=== PATIENT | female | born 1985 | race Caucasian/White ===

== ENCOUNTER 2018-05-28 10:26 | Day surgery (SDC) | payer OTHER, SELFPAY ==
[2018-05-21 14:04] VITALS: BMI 25.2
--- NOTE | 2018-05-28 | PATH_ITS ---
[facility] [place] Accession Number: [id number] . 01 Material submitted: . ENDOMETRIAL POLYPS AND CURETTAGE . 01 Clinical history: . RESECTION OF ENDOMETRIAL POLYPS AND CURETTAGE . 02 Diagnosis: Endometrial Biopsy: Multiple fragments of endometrium consistent with benign endometrial polyp, negative for atypia. [facility]05/29/2018 . 02 Electronically signed: . Paul Noonan MD, Pathologist NPI- [id number] . 01 Gross description: . Received one formalin-filled container labeled with the patient's name and labeled resection of endometrial polyps and curettage. The specimen consists of approximately a 0.75 cc aggregate of tissue and mucoid material, which is filtered, wrapped, and entirely submitted in one cassette. ([id number]) /FRR . 02 Pathologist provided ICD-10: N84.0 . 02 CPT . 467159 Performed at: 01 [facility] [address] [id number] MD Mariano Bradford MD Phone: [phone] Performed at: 02 [facility] [address] [place], [place] [id number] MD Anastacio Garber MD Phone: [phone]
[2018-05-28] MEDS: LACTATED RINGERS 1,000 ML 42 ML IV (10:44)
[2018-05-28 11:40] VITALS: BMI 25.2
[2018-05-28] MEDS: MIDAZOLAM 2 MG/2 ML VIAL IV (11:40)
[2018-05-28 11:48] VITALS: BMI 25.2
[2018-05-28 12:19] VITALS: BP 135/89; PULSE 60; RESP 10; TEMP 36.1; O2SAT 96
[2018-05-28 12:24] VITALS: BP 133/87; PULSE 60; RESP 12; O2SAT 96
--- NOTE | 2018-05-28 12:25 | PM.OP.1 ---
Operative Date/Time/Diagnoses Date of procedure: 05/28/18 Time of procedure: 12:25 Pre-op diagnosis: Menorrhagia with ultrasound suggestive of polyp Post-op diagnosis: same Procedure & Clinicians Procedure: Operative hysteroscopy with resection of polyp and D and C Same procedure as scheduled: Yes Indications: Menorrhagia Surgeon: Neelima Vazquez Click Yes if Unassisted: Yes Anesthesia Type: General Operative Notes Findings: Endometrial polyp otherwise normal exam under anesthesia Closure Type: not applicable Specimen(s): other (Endometrial curettings and polyps) Estimated Blood Loss (mL): 5 Blood products transfused: none Procedure in detail: The patient was brought to the operating room where she underwent general anesthesia. She was placed in low stirrups She was prepped and draped in usual sterile fashion with pulsatile stockings in place and functional, warming in place, antibiotics in prior to beginning the case. A single-tooth tenaculum was placed on the anterior lip of the cervix and the uterus dilated to #8 Hegar dilator. The hysteroscope was placed into the uterus with a sorbitol solution running and under constant suction. The resecting loop set at 100 W of cutting was used to resect the polyp down to the level of the endometrium. A endometrial curettage was performed. The polyp and the endometrial curettage was sent to pathology. The patient went to recovery room in good condition counts of instruments and sponges were correct. The sorbitol solution I=O approximately 1000 mL. Complications: none Condition: stable Disposition: same day surgery Plan for aftercare: Follow-up in 2 weeks
[2018-05-28 12:29] VITALS: BP 127/80; PULSE 72; RESP 14; O2SAT 99
[2018-05-28 12:34] VITALS: BP 123/83; PULSE 76; RESP 16; TEMP 36; O2SAT 98
[2018-05-28 13:00] VITALS: BP 121/86; PULSE 72; RESP 16; O2SAT 100
--- NOTE | 2018-05-28 13:16 | PM.PREOP ---
Pre-operative Note Interval Note Pre-op Check: Yes History & Physical Reviewed by Physician and Yes Exam Performed Changes: No
== END 2018-05-28 13:22 | disposition home or self-care (01) ==
PROVIDERS: Family Provider Family Medicine; Visit Provider Specialist
PROC: 0UDB8ZZ Extraction of Endometrium, Via Natural or Artificial Opening Endoscopic (ICD-10-PCS; CPT 58558; principal; 2018-05-28 11:30)
DX: N84.0 Polyp of corpus uteri (principal)
CPT/HCPCS: 58558; J1100; J1885; J2250; J2405; J2704; J3010

== ENCOUNTER → 2020-03-11 09:00 | Outpatient (CLI) | payer OTHER, SELFPAY ==
--- NOTE | 2020-03-11 | DI.CT.S_ITS ---
PROCEDURE: CT ABDOMEN PELVIS W CON INDICATIONS: Right upper quadrant pain TECHNIQUE: After the administration of oral and intravenous contrast, 5 mm thick sections acquired from the diaphragms to the symphysis. 5 mm thick coronal and sagittal reformats were performed. For radiation dose reduction, the following was used: automated exposure control, adjustment of mA and/or kV according to patient size. COMPARISON: None. FINDINGS: Image quality: Excellent. ABDOMEN: Lung bases: Lung bases are clear. Heart size is normal. Solid organs: Liver is normal in size and enhancement. Gallbladder is surgically absent. Biliary system is non-dilated. Pancreas enhances normally. Spleen is normal in size and enhancement. No adrenal nodules. Kidneys are normal in size and enhancement, without hydronephrosis. Peritoneum and bowel: Stomach, small bowel, and colon loops are normal in caliber and wall thickness. No free fluid or air. Nodes and vessels: No retroperitoneal or mesenteric adenopathy. Aorta and inferior vena cava are normal in caliber. Miscellaneous: No ventral hernias. PELVIS: Genitourinary: Bladder wall thickness is normal. Miscellaneous: No inguinal hernias or adenopathy. Bones: No suspicious bony lesions. No vertebral body compression fractures. IMPRESSION: Remote cholecystectomy. Otherwise unremarkable CT of the abdomen and pelvis with contrast. Dictated by: Pasquale Pedro M.D. on 03/11/2020 at 10:17 Approved by: Pasquale Pedro M.D. on 03/11/2020 at 10:20
[2020-03-11 10:32] LABS: Iron 153 ug/dL (37-170)
[2020-03-11 10:33] LABS: BUN Creatinine Ratio 9.8 (6-22); Blood Urea Nitrogen 6 mg/dL (7-17); Calcium 9.7 mg/dL (8.4-10.2); Carbon Dioxide 29 mmol/L (22-32); Chloride 102 mmol/L (98-107); Estimated Glomerular Filt Rate > 60.0 mL/min (>60); Glucose 68 mg/dL (70-100); HEMOLYSIS 29 (0-50); Potassium 4.6 mmol/L (3.4-5.1); Sodium 137 mmol/L (137-145)
[2020-03-11 10:42] LABS: Total Iron Binding Capacity 265 ug/dL (265-497)
[2020-03-11 11:09] LABS: Ferritin 38 ng/mL (6-137)
== END ==
PROVIDERS: Family Provider Family Medicine; PCP Family Medicine; Referring Provider Family Medicine; Visit Provider Family Medicine
DX: Z01.812 Encounter for preprocedural laboratory examination (principal); R10.11 Right upper quadrant pain; R79.89 Other specified abnormal findings of blood chemistry; Z90.49 Acquired absence of other specified parts of digestive tract
CPT/HCPCS: 36415; 74177; 80048; 81256; 82728; 83540; 83550

== ENCOUNTER → 2021-01-01 15:44 | Outpatient (CLI) | payer OTHER, SELFPAY ==
[2021-01-01 16:26] LABS: Add Manual Diff / Slide Review NO; Basophils Absolute Auto 0 /uL (0-100); Basophils Percent Auto 0.7 % (0-2); Eosinophils Absolute Auto 100 /uL (0-450); Eosinophils Percent Auto 0.9 % (2-4); Hematocrit 35.2 % (36-46); Hemoglobin 12.1 g/dL (12.0-16.0); Lymphocytes Absolute Auto 2400 /uL (1100-4500); Lymphocytes Percent Auto 34.5 % (25-40); Mean Corpuscular HGB Conc 34.4 % (30-36); Mean Corpuscular Hemoglobin 32.3 PG (26-34); Mean Corpuscular Volume 93.9 fL (80-100); Monocytes Absolute Auto 600 /uL (0-900); Monocytes Percent Auto 9.2 % (3-14); Neutrophils Absolute Auto 3800 /uL (1500-7000); Neutrophils Percent Auto 54.7 % (50-75); Platelet Count 305 X10^3/uL (150-400); Red Blood Cell Count 3.75 X10^6/uL (4.0-5.2); Red Cell Distribution Width 13.2 % (11.6-14.8)
[2021-01-01 16:44] LABS: Glucose 83 mg/dL (70-100)
[2021-01-01 16:45] LABS: HEMOLYSIS < 15 (0-50); Iron 72 ug/dL (37-170)
[2021-01-01 16:57] LABS: Percent Iron Saturation 26 % (15-50); Total Iron Binding Capacity 278 ug/dL (265-497); Transferrin 228 mg/dL (206-381)
[2021-01-01 18:04] LABS: Hemoglobin A1C% w Est Avg Glu 4.8 % (4.0-6.0)
[2021-01-01 18:21] LABS: Free T3, Triiodothyronine Free 1.99 pg/mL (2.77-5.27)
[2021-01-02 05:37] LABS: RPR Screen Non Reactive (Non Reactive)
[2021-01-02 09:32] LABS: Varicella IgG Antibody 2030 index (Immune >165)
[2021-01-04 18:10] LABS: HIV 1 & 2 Ab/Ag 4th Gen Combo NEGATIVE (NEGATIVE); Hep C Virus Ab w/Reflex Quant NEGATIVE s/c (NEGATIVE); Hepatitis B Surface Antigen NEGATIVE s/c (NEGATIVE); Rubella Antibody IgG 84.9 IU/mL (>15)
== END ==
PROVIDERS: Family Provider Family Medicine; Referring Provider Family Medicine; Visit Provider Family Medicine
DX: Z34.01 Encounter for supervision of normal first pregnancy, first trimester (principal); E83.110 Hereditary hemochromatosis; E03.9 Hypothyroidism, unspecified
CPT/HCPCS: 36415; 80055; 82947; 83036; 83540; 83550; 84439; 84443; 84481; 86787; 86803; 86850; 86900; 86901; 87389

== ENCOUNTER → 2021-01-13 12:15 | Outpatient (CLI) | payer OTHER, SELFPAY ==
[2021-01-13 19:04] LABS: Appearance Urine UA CLEAR; Bilirubin Urine UA NEGATIVE (NEGATIVE); Color Urine UA YELLOW; Glucose Urine UA NEGATIVE (Negative); Ketones Urine UA NEGATIVE (NEGATIVE); Leukocyte Esterase Urine UA NEGATIVE (NEGATIVE); Nitrite Urine UA NEGATIVE (Negative); Occult Blood Urine UA NEGATIVE (Negative); Protein Urine UA NEGATIVE (Negative); Urobilinogen Urine UA 0.2 E.U./dL (0.2)
[2021-01-13 19:11] LABS: pH Urine UA 6.5 (4.5-8.0)
== END ==
PROVIDERS: Family Provider Family Medicine; PCP Family Medicine; Visit Provider Family Medicine
DX: Z34.01 Encounter for supervision of normal first pregnancy, first trimester (principal)
CPT/HCPCS: 81003; 81420; 87086

== ENCOUNTER → 2021-02-15 10:33 | Outpatient (CLI) | payer OTHER, SELFPAY ==
[2021-02-15 21:54] LABS: Thyroid Stimulating Hormone 1.47 uIU/mL (0.47-4.68)
== END ==
PROVIDERS: Family Provider Family Medicine; PCP Family Medicine; Visit Provider Family Medicine
DX: E03.9 Hypothyroidism, unspecified (principal); Z34.90 Encounter for supervision of normal pregnancy, unspecified, unspecified trimester
CPT/HCPCS: 84443

== ENCOUNTER → 2021-02-16 10:41 | Outpatient (CLI) | payer OTHER, SELFPAY ==
[2021-02-16 11:20] LABS: Free T3, Triiodothyronine Free 2.64 pg/mL (2.77-5.27); Free T4, Direct Thyroxine 1.16 ng/dL (0.78-2.19)
== END ==
PROVIDERS: Family Provider Family Medicine; PCP Family Medicine; Visit Provider Family Medicine
DX: E03.9 Hypothyroidism, unspecified (principal)
CPT/HCPCS: 84439; 84481

== ENCOUNTER → 2021-03-26 10:10 | Outpatient (CLI) | payer OTHER, SELFPAY ==
--- NOTE | 2021-03-26 10:11 | DI.US.S_ITS ---
PROCEDURE: US OB >= 14 WEEKS FETUS INDICATIONS: ANATOMY OUTSIDE/PRIOR DATING DATA: Last menstrual period (LMP): 11/02/2020. LMP-based estimated date of delivery (SKY): 08/09/2021. First dating scan (date and location): 03/26/2021 at . Estimated date of delivery (SKY) from first dating scan: 08/07/2021. TECHNIQUE: Real-time scanning was performed of the fetus, with image documentation and biometric measurements. Endovaginal scanning: Not performed COMPARISON: None. FINDINGS: General: A single living intrauterine gestation is present. Presentation: Vertex. Placenta: Placental position is anterior , without previa. Amniotic fluid index: 13.2 cm, normal range is 5-24 cm; largest pocket 4.1 cm. heart rate: 155 beats per minute. Maternal cervical canal: 3 point cm long. Normal lower limit is 2.5 cm. biometrics: Biparietal diameter: 21 weeks 0 day Head circumference: 20 weeks 6 days Abdominal circumference: 21 weeks 3 days Femur length: 20 weeks 2 days Estimated gestational age from initial scan: not applicable. Composite gestational age from present scan: 20 weeks 6 days Estimated weight and percentile: 386 g; 64% Measurement variability for biometric dating: +/- 7 days from 14 weeks to 15 weeks 6 days gestation, +/- 10 days from 16 weeks to 21 weeks 6 days gestation, +/- 2 weeks from 22 weeks to 27 weeks 6 days gestation, +/- 3 weeks for 28 weeks gestation or later. weight reference: 4500 g or EFW >90/95% is considered macrosomia or large for gestational age. EFW <10% is small for gestational age. EFW 5% or less is considered intra-uterine growth restriction. Anatomic survey: Neuro: Ventricles are non-dilated at less than 10 mm. Cisterna magna is normal at 3-11 mm. Cerebellum is normal in size and morphology. Nuchal skin fold: Normal at less than 6 mm between 14-21 weeks gestational age. Face: Nose and lips are normal. facial profile not seen due to lie. Spine: No evidence for spina bifida. Heart: 4-chambered heart is present, with normal ventricular outflow tracts. Diaphragm: Diaphragm is intact. Stomach: Left-sided stomach is present. Kidneys: No hydronephrosis. Normal is less than 5 mm in 2nd trimester, less than 7 mm in 3rd trimester. Cord: 3-vessel cord has orthotopic insertion. Bladder: Normal in size. Extremities: All 4 extremities identified. IMPRESSION: 1. A single living intrauterine gestation with appropriate interval growth. 2. facial profile not seen. Follow-up ultrasound is suggested. 3. Otherwise normal anatomic survey. Dictated by: Maria C Polk M.D. on 03/26/2021 at 12:52 Approved by: Maria C Polk M.D. on 03/26/2021 at 16:54
== END ==
PROVIDERS: Family Provider Family Medicine; PCP Family Medicine; Referring Provider Family Medicine; Visit Provider Family Medicine
DX: Z36.89 Encounter for other specified antenatal screening (principal); Z3A.20 20 weeks gestation of pregnancy
CPT/HCPCS: 76811

== ENCOUNTER → 2021-04-14 11:49 | Outpatient (ROUT) | payer OTHER, SELFPAY ==
[2021-04-14 12:20] LABS: HEMOLYSIS 46 (0-50); Iron 145 ug/dL (37-170)
[2021-04-14 12:31] LABS: Percent Iron Saturation 36 % (15-50); Total Iron Binding Capacity 398 ug/dL (265-497); Transferrin 337 mg/dL (206-381)
[2021-04-14 12:34] LABS: Hematocrit QNS % (36-46); Hemoglobin QNS g/dL (12.0-16.0)
[2021-04-14 12:38] LABS: Free T3, Triiodothyronine Free 2.37 pg/mL (2.77-5.27); Free T4, Direct Thyroxine 1.25 ng/dL (0.78-2.19)
[2021-04-14 12:52] LABS: Thyroid Stimulating Hormone 1.78 uIU/mL (0.47-4.68)
== END ==
PROVIDERS: Family Provider Family Medicine; PCP Family Medicine; Visit Provider Family Medicine
DX: O99.282 Endocrine, nutritional and metabolic diseases complicating pregnancy, second trimester (principal)
CPT/HCPCS: 83540; 83550; 84439; 84443; 84481; 85014; 85018

== ENCOUNTER → 2021-04-16 12:08 | Outpatient (CLI) | payer OTHER, SELFPAY ==
--- NOTE | 2021-04-16 12:09 | DI.US.S_ITS ---
PROCEDURE: US OB FOLLOW UP INDICATIONS: PROFILE NOT SEEN ON ANATOMY SCREEN OUTSIDE/PRIOR DATING DATA: Last menstrual period (LMP): 11/02/2020. LMP-based estimated date of delivery (SKY): 08/09/2021 . First dating scan (date and location): 03/26/2021 . Estimated date of delivery (SKY) from first dating scan: 08/07/2021 . TECHNIQUE: Real-time scanning was performed of the fetus, with image documentation. Endovaginal scanning: No COMPARISON: [facility], , OB >= 14 WEEKS FETUS, 03/26/2021, 10:23. FINDINGS: A single living intrauterine gestation is present. Presentation: Vertex Placenta: Placental position is anterior , without previa. Amniotic fluid index: 16.1 cm, normal range is 5-24 cm. heart rate: 141 beats per minute. Maternal cervical canal: 4.0 cm long. Normal lower limit is 2.5 cm. Estimated gestational age from initial scan: 23 weeks 6 days . IMPRESSION: 1. Single living IUP redemonstrated and today's exam demonstrates normal appearance of the facial profile. Dictated by: Leonides CORRALES Interpreted: Ritika Soares MD on 04/16/2021 at 13:15 Transcribed by: SIM on 04/16/2021 at 13:19 Approved by: Ritika Soares M.D. on 04/16/2021 at 13:33
== END ==
PROVIDERS: Family Provider Family Medicine; PCP Family Medicine; Referring Provider Family Medicine; Visit Provider Family Medicine
DX: Z36.2 Encounter for other antenatal screening follow-up (principal); Z3A.23 23 weeks gestation of pregnancy
CPT/HCPCS: 76816

== ENCOUNTER → 2021-05-14 09:29 | Outpatient (CLI) | payer OTHER, SELFPAY ==
[2021-05-14 11:54] LABS: GTT (PREG) 1 Hour PP 50gm Dose 96 mg/dL (76-139)
== END ==
PROVIDERS: Family Provider Family Medicine; PCP Family Medicine; Referring Provider Family Medicine; Visit Provider Family Medicine
DX: Z34.90 Encounter for supervision of normal pregnancy, unspecified, unspecified trimester (principal)
CPT/HCPCS: 36415; 82950

== ENCOUNTER → 2021-06-11 12:45 | Outpatient (CLI) | payer OTHER, SELFPAY ==
[2021-06-11 14:53] LABS: Free T3, Triiodothyronine Free 2.53 pg/mL (2.77-5.27); Free T4, Direct Thyroxine 0.89 ng/dL (0.78-2.19)
[2021-06-11 15:08] LABS: Thyroid Stimulating Hormone 1.46 uIU/mL (0.47-4.68)
== END ==
PROVIDERS: Family Provider Family Medicine; PCP Family Medicine; Referring Provider Family Medicine; Visit Provider Family Medicine
DX: E03.9 Hypothyroidism, unspecified (principal)
CPT/HCPCS: 36415; 84439; 84443; 84481

== ENCOUNTER → 2021-07-16 11:54 | Outpatient (CLI) | payer OTHER, SELFPAY ==
[2021-07-17 15:04] LABS: Strep Grp B PCR NEG for Grp B Strep
== END ==
PROVIDERS: Family Provider Family Medicine; PCP Family Medicine; Visit Provider Family Medicine
DX: Z34.90 Encounter for supervision of normal pregnancy, unspecified, unspecified trimester (principal); Z3A.35 35 weeks gestation of pregnancy
CPT/HCPCS: 87653

== ENCOUNTER 2021-08-06 08:32 | Inpatient (IN) | payer OTHER, SELFPAY ==
[2021-08-06 09:55] LABS: Add Manual Diff / Slide Review NO; Basophils Absolute Auto 100 /uL (0-100); Basophils Percent Auto 0.5 % (0-2); Eosinophils Absolute Auto 0 /uL (0-450); Eosinophils Percent Auto 0.1 % (2-4); Hematocrit 35.8 % (36-46); Hemoglobin 11.8 g/dL (12.0-16.0); Lymphocytes Absolute Auto 1400 /uL (1100-4500); Lymphocytes Percent Auto 12.6 % (25-40); Mean Corpuscular Hemoglobin 29.2 PG (26-34); Mean Corpuscular Volume 88.4 fL (80-100); Monocytes Absolute Auto 800 /uL (0-900); Monocytes Percent Auto 7.5 % (3-14); Neutrophils Absolute Auto 8900 /uL (1500-7000); Neutrophils Percent Auto 79.3 % (50-75); Platelet Count 227 X10^3/uL (150-400); Red Blood Cell Count 4.05 X10^6/uL (4.0-5.2); Red Cell Distribution Width 13.8 % (11.6-14.8); White Blood Cell Count 11.3 X10^3/uL (4.5-11.0)
[2021-08-06 10:07] LABS: COVID19 -Nasal RAPID Negative (Negative)
[2021-08-06 12:36] VITALS: BP 117/70
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
--- NOTE | 2021-08-07 02:23 | PM.AN.REGBLK ---
Regional Block Pre-procedure Procedure: Continuous Lumbar Epidural for L&D Attending OB provider: Ronda Levy PMH/ROS narrative: hypothyroidism, MDD, anxiety, ADHD Hx: No personal or family history of anesthesia problems. PSH/Anesthesia history narrative: none Exam narrative: Moaning and appearing exhausted. ASA Class: II Labs: Hct 35.8 % (36-46) L 08/06/21 09:44 Plt Count 227 X10^3/uL (150-400) 08/06/21 09:44 Medications: Current Medications Generic Name Dose Route Start Last Admin Trade Name Freq PRN Reason Stop Dose Admin Carboprost Tromethamine 250 mcg 08/06/21 09:13 Carboprost 250 Mcg/Ml Ampul IM Q90M PRN Bleeding Fentanyl 50 mcg 08/06/21 09:13 Fentanyl 100 Mcg/2 Ml Inj IV Q1H PRN Pain, Moderate (4-6) Lactated Ringer's 1,000 mls @ 100 mls/hr 08/06/21 09:15 Lactated Ringers IV CONT ELOY Oxytocin/Lactated Ringer's 30 unit in 500 mls @ 200 mls/hr 08/06/21 09:13 Oxytocin Premix IV CONT PRN Bleeding Protocol Tranexamic Acid 1,000 mg/ 100 mls @ 200 mls/hr 08/06/21 09:13 Sodium Chloride IV NOW PRN Bleeding Methylergonovine Maleate 0.2 mg 08/06/21 09:13 Methylergonovine 0.2 Mg Tablet PO Q6HR PRN Heavy Bleeding Methylergonovine Maleate 0.2 mg 08/06/21 09:13 Methylergonovine 0.2 Mg/Ml Vial IM NOW PRN Bleeding Misoprostol 800 mcg 08/06/21 09:13 Misoprostol 200 Mcg Tablet HI NOW PRN Bleeding Misoprostol 1,000 mcg 08/06/21 09:13 Misoprostol 200 Mcg Tablet HI NOW PRN Bleeding Misoprostol 400 mcg 08/06/21 09:13 Misoprostol 200 Mcg Tablet SL NOW PRN Bleeding Oxytocin 10 unit 08/06/21 09:13 Oxytocin 10 Unit/Ml Vial IM NOW PRN Bleeding Allergies: Allergies Allergy/AdvReac Type Severity Reaction Status Date / Time Penicillins [PENICILLINS] Allergy Intermediate Hives Verified 06/25/21 15:08 Sulfa (Sulfonamide Allergy Intermediate Hives Verified 06/25/21 15:08 Antibiotics) [SULFA (SULFONAMIDE ANTIBIOTICS)] gluten AdvReac Verified 08/06/21 12:51 Procedure Insertion date: 08/07/21 Insertion time: 02:08 Prep/Local: betadine x3 (chloroprep) and 1% lidocaine Interspace: L3-4 Patient position: sitting Needle: 18 gauge Hustead (with 27G pencil point needle-through needle for IT dose) Loss of resistance with: saline (with air bubble) TONG at (cm): 5 Catheter placed at SKIN (cm): 10 Catheter in SPACE (cm): 5 Insertion: Yes CSF, No Blood, No Paresthesia with insertion, No Paresthesia with injection and No Test dose reaction Initial Medications TEST DOSE time: 02:08 TEST DOSE: 1.5% lidocaine with epinephrine 1:200k (mL): 5 (3mL initial test dose, 2mL as part of first bolus) BOLUS DOSE time: 02:10 BOLUS DOSE (mL): 2 BOLUS DOSE med: other (10mcg fentanyl intrathecally, 90mcg fentanyl via epidural catheter) Infusion INFUSION: 0.0625% bupivacaine and with fentanyl 2 mcg/mL Initial rate (mL/hr): 12 (with bolus of 5mL Q15min lockout) Post-procedure Anesthesia time START: 01:53 Anesthesia time END: 06:36 Post-procedure Anesthesia Assessment: No Anesthesia complications
--- NOTE | 2021-08-07 02:34 | PM.OBPNLAB ---
Date/Time Date Patient Seen: 08/07/21 Time Patient Seen: 02:34 Pain Control Pain control: epidural Pelvic Exam Dilation (cm): 10 Effacement (%): 100 station: +1 Amniotic membrane status: Ruptured Contractions Contraction frequency (min): 3 Contraction pattern: Irregular Contraction intensity: Strong/Firm Status status: Category l Heart Rate Baseline: 130 Monitor Accelerations: Present Monitor Decelerations: Absent Monitor Variability: Moderate Assessment and Plan Comments: 36yo at 39w4d here with SROM in active labor.? GBS negative, Rh positive. Pt has been complete and pushing for 3.5 hours, with modest decent. Feeling very fatigued. Pushing has not been very effective, with pt breathing through a majority of her contractions. Epidural was placed to help with relaxation and allow the pt to rest. While she has been complete for some time, would not call arrest of descent at this point as baby continues to gradually descend, at a rate seemingly appropriate for limited pushing. Will allow the pt to nap and labor down for 1 hour prior to restarting pushing. Once start pushing again, will hope to see relative rapid descent otherwise may need to consider additional intervention. - Expectant management, anticipate - GBS negative, no prophylaxis indicated - FHT reassuring - Epidural in place for pain control
--- NOTE | 2021-08-07 07:42 | P.PCNOB_ITS ---
Labor & Delivery Delivery date: 08/07/21 Intrapartal Events: Prolonged 2nd Stage > 2.5 hours Cervical ripening method: none Induction method: none Delivery monitor: external FHT Route of delivery: vacuum extraction Indication for instrumentation: maternal exhaustion Episiotomy description: None L&D Laceration Description: Perineal - 2nd Degree Delivery repair: chromic Estimated blood loss (mL): 250 Anesthesia Type: Epidural Narrative: PROCEDURE: at 39w4d presented in active labor with SROM and was admitted to Labor and Delivery. The patient progressed through the 1st stage over 20 hours. Pain was controlled with natural methods. She had intermittent monitoring that was reassuring. The patient progressed to complete, and began pushing. Due to techniques used, fear of delivery, and ultimately fatigue her pushing inconsistently effective. FHT remained reassuring throughout her pushing. After pushing for 3.5 hours without an epidural, options were discussed including obtaining an epidural, primary , and vacuum-a ssisted vaginal delivery (which was not recommended without an epidural). The pt preferred to get an epidural, which was then obtained. Due to FHT still remaining Category I, the pt was then allowed to rest and labor down for an hour. She then pushed for an additional 2.5 hours with steady but slow progress. Due to maternal exhaustion, the decision was then made to proceed with a vacuum-assisted vaginal delivery. Indication for operative vaginal delivery was assessed to be secondary to failure to descend and maternal exhaustion. Fetus noted to be at +2 station. Patient was evaluated and noted to have adequate pain control. Patient counseled on risks/benefits/alternatives of vacuum assisted delivery. Risks were discussed and they included but were not limited to a need for an episiotomy, pressure cardona on the baby, lacerations to the baby's scalp/face, serious damage including skull fracture, the need to proceed with an abdominal procedure, , paralysis of the baby's arms and/or legs, neurological impairment of the baby. Alternatives would include CS or further observation. Questions were answered and the patient verbalized an understanding and decided to proceed. Vacuum cup of the [place] OmniCup applied to the flexion point without difficulty and during contractions, pressure applied between 400-600 mmHg as indicated in the green zone of the pressure gauge. Infant delivered after 4 pulls with 0 pop-offs over an intact perineum. The anterior shoulder and remainder of the was delivered without difficulty. The baby was delivered to maternal abdomen at 6:36am. The cord was clamped at cut after it stopped pulsating. APGARs were 8/9. The perineum and vagina were inspected with a small 2nd degree perineal laceration repaired with 3-O Chromic. Infant was examined and no evidence of injury noted. The placenta was delivered with gental cord traction. The pt declines pitocin, after detailed discussion of risks vs benefits completed in clinic. Her fundus was firm and -2 below the umbilicus with aggressive fundal massage. PREPROCEDURE DIAGNOSIS: Intrauterine at 39w5d GBS negative RH positive Hypothyroidism Anxiety and depression POSTPROCEDURE DIAGNOSIS: Intrauterine at 39w5d, delivered Same as preprocedure Prolonged second stage of labor Failure to descend Vacuum-assisted vaginal delivery Baby 1: gender: Male Presentation: vertex Position: Right Occiput Posterior Placenta delivery description: Spontaneous Cord Vessel Description: 3 Vessels score (1 min): 8 score (5 min): 9 weight: 8 lb 1.455 oz Plan for aftercare: Routine care
[2021-08-07] MEDS: LEVOTHYROXINE 88 MCG TABLET PO (08:44)
[2021-08-07] MEDS: DERMOPLAST SPRAY 20% 60 ML 1 SPRAY TOP (08:47)
[2021-08-07] MEDS: IBUPROFEN 600 MG TABLET PO ×3 (08:47→21:30)
[2021-08-07] MEDS: DOCUSATE 100 MG CAPSULE PO (09:04)
[2021-08-07] MEDS: METHYLERGONOVINE 0.2 MG TABLET PO ×2 (09:04→15:33)
[2021-08-07] MEDS: PRENATAL VIT,CALC/IRON/FOLIC 1 TABLET 1 TAB PO (09:04)
[2021-08-07] MEDS: OXYTOCIN 10 UNIT/ML VIAL IM (09:09)
[2021-08-07] MEDS: buPROPion XL 150 MG TAB 450 MG PO (09:25)
[2021-08-08] MEDS: IBUPROFEN 600 MG TABLET PO ×3 (03:43→21:11)
[2021-08-08] MEDS: LEVOTHYROXINE 88 MCG TABLET PO (06:30)
[2021-08-08] MEDS: buPROPion XL 150 MG TAB 450 MG PO (11:16)
[2021-08-08 11:18] VITALS: TEMP 36.8
--- NOTE | 2021-08-08 17:08 | PM.OBPN.1 ---
Subjective - OB Subjective Date Patient Seen: 08/08/21 Time Patient Seen: 08:50 Interval history: The pt reports that she is overall feeling well this morning. Her pain is well controlled. She does have significant tailbone pain. Her lochia is minimal. She has ambulated, voided, and had a small BM. She is well, however does have some pain with latching. Exam Vital Signs (past 8 hours): - 08/08/21 11:18 Temperature 98.2 F Narrative Exam Narrative: Gen: NAD, sitting comfortably in bed, appears well CV: RRR, no murmurs Resp: clear to auscultation bilaterally Abd: soft, appropriately tender, fundus firm and below the umbilicus, nondistended Ext: no edema Objective Labs Result Diagrams: 08/06/21 09:44 Assessment & Plan Plan Comments: 36yo PPD#1 s/p vacuum-assisted vaginal delivery for failure to descend and maternal exhaustion. Pt doing well overall. - Normal care - support. consult tomorrow. Time Spent With Patient Time: Total time spent is greater than 50% in coordination of care (as documented) at patient's floor/unit and/or counseling patient: Time with patient: 15-24 minutes
[2021-08-08] MEDS: ACETAMINOPHEN 325 MG TABLET 650 MG PO (21:14)
[2021-08-09] MEDS: IBUPROFEN 600 MG TABLET PO ×2 (03:42→09:45)
[2021-08-09] MEDS: ACETAMINOPHEN 325 MG TABLET 650 MG PO ×2 (03:42→09:46)
[2021-08-09] MEDS: LEVOTHYROXINE 88 MCG TABLET PO (07:36)
--- NOTE | 2021-08-09 08:38 | P.DS_ITS ---
Discharge Providers Provider Date of admission: 08/06/21 08:32 Discharge Date: 08/09/21 Primary care physician: Ronda Levy MD Consults: 08/08/21 07:42 Consult to Music Writer Routine Comment: Discharge provider: Ronda Levy MD Summary Hospital Course Date Patient Seen: 08/09/21 Time Patient Seen: 08:00 Diagnoses: Intrauterine at 39w5d GBS negative RH positive Hypothyroidism Anxiety and depression Prolonged second stage of labor Failure to descend Vacuum-assisted vaginal delivery Hospital Course: The pt presented in active labor with SROM. She progressed to complete using natural methods for pain control. After prolonged pushing, an epidural was obtained. The pt then pushed for a prolonged period. With fetus at +2 station and maternal pelvis believed to be adequate, a vacuum was applied to assist with delivery due to maternal exhaustion and failure to descend. The baby delivered easily in OP position at 6:36am on 08/07/21. APGARs 8/9. A second degree perineal laceration was then repaired. The pt declines pitocin, however this was given later along with methergine due to increased vaginal bleeding. There were no other complications with delivery. , there were no complications. At the time of discharge she was voiding, ambulating, and passing flatus without difficulty. Her lochia was decreasing appropriately. Her pain was well controlled. She was She will f/u in clinic in 6 weeks for check. She plans on natural family planning for contr aception. Peripartum Data Infant Delivery Method: Assisted Delivery Laceration Description: Perineal - 2nd Degree Episiotomy description: None Procedures: Vacuum-assisted vaginal delivery complications: none 1: Gender: Male Disposition of : home Discharge Diagnosis (1) Hypothyroidism: Status: Chronic (2) Anxiety and depression: Status: Acute (3) Vacuum-assisted vaginal delivery: Status: Acute Status at Discharge Cognitive/behavioral status at discharge: oriented Functional status at discharge: independent ambulation Overall status at discharge: patient is progressing back to baseline Time Spent with Patient Time attestation: Total time spent providing and/or coordinating discharge services: Objective Labs Result Diagrams: 08/06/21 09:44 Exam Narrative Exam Narrative: Gen: NAD, sitting comfortably in bed, appears well CV: RRR, no murmurs Resp: clear to auscultation bilaterally Abd: soft, appropriately tender, fundus firm and below the umbilicus, nondistended Ext: no edema Discharge Plan Discharge Plan Patient Disposition: Home Discharge orders & Medications Prescriptions: New acetaminophen 325 mg Tablet 650 mg PO Q6HR PRN (Reason: Pain, Mild (1-3)) Qty: 30 0RF docusate sodium 100 mg Capsule 100 mg PO DAILY Qty: 30 0RF ibuprofen 600 mg Tablet 600 mg PO Q6HR PRN (Reason: Pain, Mild (1-3)) Qty: 30 0RF Continued levothyroxine 88 mcg tablet 88 mcg PO DAILY Qty: 90 3RF bupropion HCl [Wellbutrin XL] 150 mg tablet extended release 24 hr 450 mg PO QAM 0RF prenat.vits,royce,fug-qbir-mywma Tablet 1 tab PO DAILY 0RF Follow up/Referrals: Ronda Levy MD [Primary Care Provider] - 6 Weeks (Patient to schedule 6 weeks visit on MondayAug.11 during baby appointment. ) Diet/Activity/Treatments Diet: Diet as Tolerated and Regular Skin/Wound/Dressing Care Report to your healthcare provider any signs of infection, such as:: chills, fever, increased pain and unusual drainage Visit Report/Discharge Packet Instructions: DI for Labor and Delivery, Vaginal Stand Alone Forms: Discharge: Care Visit Report Forms: Patient Portal/API, Stroke Signs & Symptoms Discharge Data Primary Care Provider: Ronda Levy
[2021-08-09] MEDS: PRENATAL VIT,CALC/IRON/FOLIC 1 TABLET 1 TAB PO (09:45)
[2021-08-09] MEDS: buPROPion XL 150 MG TAB 450 MG PO (09:46)
[2021-08-09] MEDS: DOCUSATE 100 MG CAPSULE PO (09:46)
[2021-08-09 10:26] VITALS: BP 128/85; PULSE 82; RESP 17; TEMP 36.4
== END 2021-08-09 14:25 | disposition home or self-care (01) | DRG 807 ==
PROVIDERS: Admitting Provider Family Medicine; Family Provider Family Medicine; PCP Family Medicine; Referring Provider Family Medicine; Visit Provider Family Medicine
DX: O63.1 Prolonged second stage (of labor) (principal); O64.8XX0 Obstructed labor due to other malposition and malpresentation, not applicable or unspecified; O75.81 Maternal exhaustion complicating labor and delivery; O70.1 Second degree perineal laceration during delivery; Z3A.39 39 weeks gestation of pregnancy; Z37.0 Single live birth; O99.284 Endocrine, nutritional and metabolic diseases complicating childbirth; E03.9 Hypothyroidism, unspecified; O99.344 Other mental disorders complicating childbirth; F41.9 Anxiety disorder, unspecified; F32.9 Major depressive disorder, single episode, unspecified; Z20.822 Contact with and (suspected) exposure to COVID-19
CPT/HCPCS: 01967; 36415; 59050; 59400; 85025; 86850; 86900; 86901; 87635; C9803; G0379; J2590; J3010

== ENCOUNTER → 2021-08-23 13:21 | Outpatient (CLI) | payer OTHER, SELFPAY ==
[2021-08-23 17:11] LABS: Free T3, Triiodothyronine Free 3.39 pg/mL (2.77-5.27); Free T4, Direct Thyroxine 1.39 ng/dL (0.78-2.19)
[2021-08-23 17:25] LABS: Thyroid Stimulating Hormone 0.917 uIU/mL (0.47-4.68)
== END ==
PROVIDERS: Family Provider Family Medicine; PCP Family Medicine; Referring Provider Family Medicine; Visit Provider Family Medicine
DX: E03.9 Hypothyroidism, unspecified (principal)
CPT/HCPCS: 36415; 84439; 84443; 84481